=== PATIENT | female | born 1980 | race Caucasian/White ===

== ENCOUNTER 2016-06-26 18:07 | Emergency (ER) | payer SELFPAY | END 2016-06-26 19:50 | disposition home or self-care (01) | LOC: ER 18:07 | DX: S39.012A Strain of muscle, fascia and tendon of lower back, initial encounter (principal); X50.0XXA Overexertion from strenuous movement or load, initial encounter; Z88.8 Allergy status to other drugs, medicaments and biological substances | CPT/HCPCS: 96372; J1885 ==